=== PATIENT | female | born 1965 | race Caucasian/White ===

== ENCOUNTER → 2017-05-01 16:38 | Outpatient (CLI) | payer OTHER, SELFPAY ==
[2017-05-08 11:08] LABS: HPV APTIMA, High Risk Negative (Negative)
== END ==
PROVIDERS: Visit Provider Nurse Practitioner Women's Health
DX: Z12.4 Encounter for screening for malignant neoplasm of cervix (principal); L29.8 Other pruritus
CPT/HCPCS: 87070; 87205; 88175; G0145